=== PATIENT | female | born 1990 | race Caucasian/White ===

== ENCOUNTER 2017-10-04 00:38 | Emergency (ER) | payer BC, OTHER ==
[2017-10-04 01:27] VITALS: BP 128/85; TEMP 98.4; BMI 33.8
[2017-10-04] MEDS ORDERED: morphine CARPU-JECT 4 MG/1 ML DISP.SYRIN IVPUSH ONE (01:47)
[2017-10-04] MEDS ORDERED: SODIUM CHLORIDE 1,000 ML IV STA (01:47)
[2017-10-04] MEDS ORDERED: FAMOTIDINE 20 MG/50 ML IVPB 20 MG/50 ML MG IVPB ONE ×2 (01:47→02:38)
[2017-10-04] MEDS ORDERED: ONDANSETRON 4 MG/2 ML VIAL IVPUSH ONE (01:47)
[2017-10-04] MEDS ORDERED: PANTOPRAZOLE SODIUM 40 MG VIAL IVPB ONE (01:47)
[2017-10-04] MEDS ORDERED: MORPHINE SULFATE 2 MG/ML VIAL ONE (01:55)
[2017-10-04] MEDS ORDERED: PANTOPRAZOLE SODIUM 40 MG/100 ML BAG IVPB ONE (01:56)
[2017-10-04] MEDS ORDERED: ONDANSETRON 4 MG/2 ML VIAL ONE (01:56)
--- NOTE | 2017-10-04 01:57 | PDOC ---
Attending Attestation - Resident Resident Name: EddieMihir stanley - ED Attending Attestation I have performed the following: I have examined & evaluated the patient, The case was reviewed & discussed with the resident, I agree w/resident's findings & plan, Exceptions are as noted <Kostas Singleton - Last Filed: 10/04/17 01:57> - HPI HPI: 10/04/17 02:03 The patient is a 27 year old female with a past medical history of cholecystectomy who presents to the emergency department with diffuse abdominal pain, nausea, vomiting, and diarrhea for 5 hours. She denies recent sick contacts. - Physicial Exam PE: 10/04/17 02:03 GENERAL: Well-appearing, well-nourished. No apparent distress. HEENT: +Normocephalic, atraumatic. PERRL, EOM intact. Dry mucosa CARDIOVASCULAR: +Normal S1, S2. Tachycardic regular rhythm. PULMONARY: Clear to auscultation bilaterally. ABDOMEN: +Soft, non-distended, Diffuse abdominal tenderness EXTREMITIES: Normal ROM in all four extremities. No gross deformities. SKIN: Warm, dry. No rash NEUROLOGICAL: No focal neurological deficits. - Medical Decision Making 10/04/17 02:03 Documentation prepared by Raghu Fernandez, acting as medical clerk for Kostas Singleton DO. <Raghu Fernandez - Last Filed: 10/04/17 02:03>
[2017-10-04 02:06] LABS: BASO % 0.5 % (0-2.0); EOS % 0.4 % (0-4.5); HEMATOCRIT 41.7 % (32.4-45.2); HEMOGLOBIN 14.4 GM/dL (10.7-15.3); LYMPH % 9.8 % (8-40); MCH 31.5 pg (25.7-33.7); MCHC 34.6 g/dl (32.0-36.0); MEAN CELL VOLUME 91.1 fl (80-96); MEAN PLT VOLUME 8.4 fl (7.5-11.1); MONO % 6.9 % (3.8-10.2); NEUT % 82.4 % (42.8-82.8); PLATELET COUNT 216 K/MM3 (134-434); RBC 4.58 M/mm3 (3.60-5.2); RDW 12.3 % (11.6-15.6); WHITE BLOOD COUNT 14.5 K/mm3 (4.0-10.0)
--- NOTE | 2017-10-04 02:15 | PDOC ---
History of Present Illness - General Chief Complaint: Vomiting/Diarrhea Stated Complaint: VOMITING/DIARRHEA/ABDOMINAL PAIN Time Seen by Provider: 10/04/17 01:41 History Source: Patient Exam Limitations: No Limitations - History of Present Illness Initial Comments: 10/04/17 02:32 Patient is 27F with history of cholecystectomy here today complaining of sudden onset of nausea, vomiting, diarrhea and abdominal pain that started at 9pm tonight. No known sick contacts or recent travel. The abdominal pain is diffuse and described as a cramping. LMP was two weeks ago. Denies pain with urination. Denies blood in vomit or stool. Denies fevers, chills. Past History - Past Medical History Allergies/Adverse Reactions: Allergies Allergy/AdvReac Type Severity Reaction Status Date / Time No Known Allergies Allergy Verified 10/04/17 01:27 COPD: No - Surgical History Cholecystectomy: Yes - Suicide/Smoking/Psychosocial Hx Smoking History: Never smoked Review of Systems - Review of Systems Comments:: 10/04/17 02:13 GENERAL/CONSTITUTIONAL: No fever or chills. No weakness. HEAD, EYES, EARS, NOSE AND THROAT: No change in vision. No sore throat. CARDIOVASCULAR: No chest pain or shortness of breath RESPIRATORY: No cough, wheezing, or hemoptysis. GASTROINTESTINAL: Positive for nausea, vomiting, diarrhea. GENITOURINARY: No dysuria, frequency, or change in urination. MUSCULOSKELETAL: No joint or muscle swelling or pain. No neck or back pain. SKIN: No rash NEUROLOGIC: No headache, vertigo, loss of consciousness, or change in strength/ sensation. ENDOCRINE: No increased thirst. No abnormal weight change HEMATOLOGIC/LYMPHATIC: No anemia, easy bleeding, or history of blood clots. ALLERGIC/IMMUNOLOGIC: No hives or skin allergy. *Physical Exam - Vital Signs Last Vital Signs Temp Pulse Resp BP Pulse Ox 98.4 F 98 H 18 128/85 97 10/04/17 01:21 10/04/17 01:21 10/04/17 01:21 10/04/17 01:21 10/04/17 01:21 - Physical Exam Comments: 10/04/17 02:14 GENERAL: Awake, alert, and fully oriented HEAD: No signs of trauma, normocephalic, atraumatic EYES: PERRLA, EOMI, sclera anicteric, conjunctiva clear ENT: Auricles normal inspection, hearing grossly normal, nares patent, oropharynx clear without exudates. Moist mucosa NECK: Normal ROM, supple, no lymphadenopathy, JVD, or masses LUNGS: No distress, speaks full sentences, clear to auscultation bilaterally HEART: Regular rate and rhythm, normal S1 and S2, no murmurs, rubs or gallops, peripheral pulses normal and equal bilaterally. ABDOMEN: Diffusely tender, sitting upright. No guarding, no rebound. No masses EXTREMITIES: Normal inspection, Normal range of motion, no edema. No clubbing or cyanosis. NEUROLOGICAL: Cranial nerves II through XII grossly intact. Normal speech, normal gait, no focal sensorimotor deficits SKIN: Warm, Dry, normal turgor, no rashes or lesions noted. ED Treatment Course - LABORATORY CBC & Chemistry Diagram: 10/04/17 01:54 10/04/17 01:54 - ADDITIONAL ORDERS Additional order review: 10/04/17 01:54 RBC 4.58 MCV 91.1 MCHC 34.6 RDW 12.3 MPV 8.4 Neutrophils % 82.4 Lymphocytes % 9.8 Monocytes % 6.9 Eosinophils % 0.4 Basophils % 0.5 - Medications Given in the ED: ED Medications Discontinued Medications Generic Name Dose Route Start Last Admin Trade Name Freq PRN Reason Stop Dose Admin Morphine Sulfate 4 mg 10/04/17 01:47 10/04/17 02:09 Morphine Injection - IVPUSH 10/04/17 01:48 4 mg ONCE ONE Administration Ondansetron HCl 4 mg 10/04/17 01:47 10/04/17 02:10 Zofran Injection IVPUSH 10/04/17 01:48 4 mg ONCE ONE Administration Medical Decision Making - Medical Decision Making 10/04/17 02:14 Patient is 27F with history of cholecystectomy here today with abdominal pain, diarrhea, vomiting. Given that patient has had cholecystectomy and history, do not suspect surgical cause of abdominal pain. Exam non-focal. Will evaluate with abdominal labs, upreg, ua. Will treat with morphine, protonix, pepcid, zofran, fluids. Patient reassessed, pain has subsided with medication. Repeat abdominal exam nontender. Do not believe patient needs CT scan at this time. 10/04/17 03:21 CBC CMP normal. negative. Patient reports feeling better. Abdomen still nontender. Will discharge home with zofran and return precautions. *DC/Admit/Observation/Transfer Diagnosis at time of Disposition: Vomiting - Discharge Dispostion Disposition: HOME Condition at time of disposition: Good Decision to Admit order: No - Referrals Referrals: Ashlee Dc [Primary Care Provider] - - Patient Instructions Printed Discharge Instructions: DI for Vomiting -- Adult Additional Instructions: Please return if you have any new, worsening or concerning symptoms. Please call your primary care physician tomorrow to set up further follow up. - Post Discharge Activity
[2017-10-04 02:39] LABS: ALBUMIN 3.8 g/dl (3.4-5.0); ALK PHOS 54 U/L (45-117); ANION GAP 13 (8-16); BILIRUBIN,TOTAL 0.9 mg/dL (0.2-1.0); BLOOD UREA NITROGEN 14 mg/dL (7-18); CALCIUM 9.3 mg/dL (8.5-10.1); CHLORIDE 104 mmol/L (98-107); CO2 23 mmol/L (21-32); GLUCOSE,RANDOM 152 mg/dL (74-106); POTASSIUM 3.5 mmol/L (3.5-5.1); SGOT/AST 26 U/L (15-37); SGPT/ALT 59 U/L (12-78); SODIUM 140 mmol/L (136-145); TOT PROT 7.1 g/dl (6.4-8.2)
[2017-10-04 03:45] VITALS: PULSE 88
== END 2017-10-04 03:45 | disposition home or self-care (01) ==
LOC: JER 00:38
PROC: 3E033GC Introduction of Other Therapeutic Substance into Peripheral Vein, Percutaneous Approach (ICD-10-PCS; principal; 2017-10-04)
PROC: 3E033NZ Introduction of Analgesics, Hypnotics, Sedatives into Peripheral Vein, Percutaneous Approach (ICD-10-PCS; 2017-10-04)
PROC: 3E0337Z Introduction of Electrolytic and Water Balance Substance into Peripheral Vein, Percutaneous Approach (ICD-10-PCS; 2017-10-04)
DX: R11.10 Vomiting, unspecified (principal)
CPT/HCPCS: 36415; 80053; 83690; 84703; 85025; 99282-25; J7030

== ENCOUNTER 2022-07-19 02:50 | Emergency (ER) | payer BC, OTHER ==
[2022-07-19 03:09] VITALS: BMI 35.4
[2022-07-19] MEDS ORDERED: ACETAMINOPHEN 325 MG TABLET (FP) PO ONE (03:38)
[2022-07-19] MEDS ORDERED: LIDOCAINE 5% TOPICAL PATCH TP ONE (03:38)
[2022-07-19] MEDS ORDERED: ACETAMINOPHEN 325 MG TABLET (FP) ONE (03:47)
[2022-07-19] MEDS ORDERED: LIDOCAINE 5% TOPICAL PATCH ONE (03:47)
[2022-07-19 06:30] VITALS: BP 114/79; PULSE 86; RESP 18; TEMP 98.6
[2022-07-19] MEDS ORDERED: LIDOCAINE PATCH REMOVAL MC SCH (22:00)
== END 2022-07-19 06:44 | disposition home or self-care (01) ==
LOC: JER 02:50
DX: S09.90XA Unspecified injury of head, initial encounter (principal); S39.012A Strain of muscle, fascia and tendon of lower back, initial encounter; Y04.2XXA Assault by strike against or bumped into by another person, initial encounter; Y92.002 Bathroom of unspecified non-institutional (private) residence as the place of occurrence of the external cause
CPT/HCPCS: 70450-TC; 71045-TC-FY; 72125-TC; 72128-TC; 72131-TC; 99284-25